=== PATIENT | male | born 1950 ===

== ENCOUNTER 2020-08-29 06:28 | Day surgery (SDC) | payer OTHER, BC | END 2020-08-29 10:15 | disposition home or self-care (01) | LOC: AMB-ENDOS 06:28 | PROVIDERS: ATTEND Surgery | DX: D12.0 Benign neoplasm of cecum (principal); D12.2 Benign neoplasm of ascending colon; D12.3 Benign neoplasm of transverse colon; D12.4 Benign neoplasm of descending colon; Z20.822 Contact with and (suspected) exposure to COVID-19 ==